=== PATIENT | male | born 1935 | race Caucasian/White ===

== ENCOUNTER 2018-10-12 17:18 | Inpatient (IN) | payer BC ==
[2018-10-12 18:10] LABS: ADD MAN DIFF? NO
[2018-10-12 18:14] LABS: BASOPHILS % 0.4 % (0.0-2.0); EOSINOPHILS # 0.4 10^3/ul (0.0-0.5); EOSINOPHILS % 3.8 % (0.0-7.0); HEMATOCRIT 32.1 % (42.0-52.0); LYMPHOCYTES # 2.2 10^3/ul (0.8-2.9); LYMPHOCYTES % 24.3 % (15.0-51.0); MEAN CORPUSCULAR HEMOGLOBIN 30.4 pg (29.0-33.0); MEAN CORPUSCULAR HGB CONC 31.2 g/dl (32.0-37.0); MEAN CORPUSCULAR VOLUME 97.6 fl (82.0-101.0); MEAN PLATELET VOLUME 10.2 fl (7.4-10.4); MONOCYTE # 0.6 10^3/ul (0.3-0.9); MONOCYTES % 6.5 % (0.0-11.0); NEUTROPHIL # 5.9 10^3/ul (1.6-7.5); NEUTROPHILS % 64.6 % (39.0-77.0); PLATELET COUNT 243 10^3/UL (140-415); RED BLOOD COUNT 3.29 10^6/ul (4.70-6.10); RED CELL DISTRIBUTION WIDTH 15.4 % (11.5-14.5)
[2018-10-12 18:14] LABS: WHITE BLOOD COUNT 9.1 10^3/ul (4.8-10.8)
[2018-10-12 18:33] LABS: INR 0.92; PROTIME 12.4 Sec (11.9-14.9)
[2018-10-12 18:41] LABS: PARTIAL THROMBOPLASTIN TIME 31.6 Sec (23.0-35.0)
[2018-10-12 18:49] LABS: MAGNESIUM 2.6 mg/dl (1.7-2.5)
[2018-10-12] MEDS: PIPER-TAZO 2.25 GM (PMX) 50 ML IVPB (18:50)
[2018-10-12 18:59] LABS: TROPONIN-I 0.097 ng/ml (0.000-0.120)
[2018-10-12 19:06] LABS: AADO2 Arterial 215.3 mmHg (7.0-24.0); Allen Test ACCEPTAB; Arterial Base Excess -1.2 mmol/L (-3.0-3); Arterial Blood Gas Oxygen Sat 99.7 mmHG (95.0-100.0); Arterial COHb 0.3 % (0.0-3.0); Arterial Fraction of Oxyhgb 99.3 % (93.0-99.0); Arterial HCO3 23.7 mmol/L (22.0-26.0); Arterial MetHb 0.1 % (0.0-1.5); Arterial pCO2 40.5 mmhg (35-45); Blood Gas IEPAP 15/5; MODE MASK - BIPAP; Site Left Radial
[2018-10-12 19:15] LABS: ALANINE AMINOTRANSFERASE 19 IU/L (13-69); ALBUMIN 4.3 g/dl (3.3-4.9); ALBUMIN/GLOBULIN RATIO 1.65; ALKALINE PHOSPHATASE 85 IU/L (42-121); ANION GAP 23 (5-13); ASPARTATE AMINO TRANSFERASE 130 IU/L (15-46); BLOOD UREA NITROGEN 35 mg/dl (7-20); CALCIUM 9.1 mg/dl (8.4-10.2); CARBON DIOXIDE 16 mmol/L (21-31); CHLORIDE 99 mmol/L (97-110); CREATININE 6.98 mg/dl (0.61-1.24); GLUCOSE 251 mg/dl (70-220); SODIUM 138 mmol/L (135-144); TOTAL PROTEIN 6.9 g/dl (6.1-8.1)
[2018-10-12] MEDS: VANCOMYCIN 1 GM (PMX) 250 ML IVPB (19:26)
[2018-10-12 19:31] LABS: POTASSIUM 6.3 mmol/L (3.5-5.1)
[2018-10-12] MEDS ORDERED: DEXTROSE 50% 50 ML SYRINGE IV (20:30)
[2018-10-12] MEDS: ALBUTEROL 0.083% (NEB) 2.5 MG/3 ML AMP HHN (20:33)
[2018-10-12] MEDS: DEXTROSE 50% 50 ML SYRINGE IV (20:40)
[2018-10-12] MEDS: FUROSEMIDE 40 MG INJ IV (20:42)
[2018-10-12] MEDS: INSULIN REGULAR, HUMAN 100 UNIT/1 ML 3ML VIAL IVP (20:48)
[2018-10-12 21:18] LABS: LACTIC ACID 1.3 mmol/L (0.5-2.0)
[2018-10-12] MEDS ORDERED: SOD CHLORIDE 0.9% 1,000 ML IV (21:56)
[2018-10-12] MEDS ORDERED: DOCUSATE SODIUM 100 MG CAP PO (22:00)
[2018-10-12] MEDS ORDERED: ONDANSETRON 4 MG INJ IV (22:00)
[2018-10-12] MEDS ORDERED: ACETAMINOPHEN 650MG/20.3ML CUP PO (22:00)
[2018-10-12] MEDS ORDERED: HYDROCODONE/APAP (5/325) TAB PO (22:00)
[2018-10-12] MEDS ORDERED: ACETAMINOPHEN 325 MG TAB PO (22:30)
[2018-10-12] MEDS ORDERED: EPOETIN 4000 UNITS/1 ML INJ (ESRD) SC (22:30)
[2018-10-12 22:40] LABS: TROPONIN-I 0.921 ng/ml (0.000-0.120)
[2018-10-12] MEDS: FAMOTIDINE 20 MG INJ IV (22:50)
[2018-10-12 22:53] LABS: POTASSIUM 5.8 mmol/L (3.5-5.1)
[2018-10-13] MEDS: ALBUTEROL/IPRATROPIUM (NEB) 3 ML AMP NEB ×6 (00:52→20:01)
[2018-10-13] MEDS: RANOLAZINE (SR) 500 MG TAB PO ×3 (01:50→21:10)
[2018-10-13] MEDS: SEVELAMER CARBONATE 0.8 GM PKT PO ×3 (07:53→17:23)
[2018-10-13] MEDS: FAMOTIDINE 20 MG INJ IV (07:53)
[2018-10-13] MEDS: LISINOPRIL 20 MG TAB PO (07:55)
[2018-10-13] MEDS: MULTIVIT/CA CARB/B CMPLX/FA TAB PO (07:55)
[2018-10-13] MEDS ORDERED: ENOXAPARIN 40 MG/0.4 ML SYG SC (09:00)
[2018-10-13] MEDS ORDERED: ENOXAPARIN 30 MG/0.3 ML SYG SC (09:00)
[2018-10-13] MEDS ORDERED: NON-FORMULARY/PATIENT OWN MED (Protein Supplement (Promod) 30 ML) PO (09:00)
[2018-10-13] MEDS: POLYETHYLENE GLYCOL 17 GM PACKET PO ×2 (10:30→11:06)
[2018-10-13 10:40] LABS: ADD MAN DIFF? NO
[2018-10-13] MEDS: DOCUSATE SODIUM 100 MG CAP PO ×3 (11:00→21:09)
[2018-10-13] MEDS: CLOPIDOGREL 75 MG TAB PO (11:06)
[2018-10-13] MEDS: ISOSORBIDE MONONITRATE(SR)30 MG TAB PO ×2 (11:06→21:11)
[2018-10-13] MEDS: ASPIRIN (EC) 81 MG TAB PO (11:06)
[2018-10-13 11:09] LABS: CREATINE KINASE 158 IU/L (23-200)
[2018-10-13 11:14] LABS: INR 0.89; PROTIME 12.1 Sec (11.9-14.9); PT RATIO 0.9
[2018-10-13 11:15] LABS: PARTIAL THROMBOPLASTIN TIME 30.1 Sec (23.0-35.0)
[2018-10-13 11:22] LABS: CK INDEX 4.4
[2018-10-13 11:25] LABS: WHITE BLOOD COUNT 10.8 10^3/ul (4.8-10.8)
[2018-10-13 11:25] LABS: BASOPHILS % 0.4 % (0.0-2.0); CK-MB 7.01 ng/ml (0.0-2.4); EOSINOPHILS # 0.1 10^3/ul (0.0-0.5); EOSINOPHILS % 1.3 % (0.0-7.0); HEMATOCRIT 32.5 % (42.0-52.0); HEMOGLOBIN 10.5 g/dl (14.0-18.0); LYMPHOCYTES # 0.8 10^3/ul (0.8-2.9); LYMPHOCYTES % 7.2 % (15.0-51.0); MEAN CORPUSCULAR HEMOGLOBIN 30.2 pg (29.0-33.0); MEAN CORPUSCULAR HGB CONC 32.3 g/dl (32.0-37.0); MEAN CORPUSCULAR VOLUME 93.4 fl (82.0-101.0); MEAN PLATELET VOLUME 9.9 fl (7.4-10.4); MONOCYTE # 0.6 10^3/ul (0.3-0.9); MONOCYTES % 5.3 % (0.0-11.0); NEUTROPHIL # 9.3 10^3/ul (1.6-7.5); NEUTROPHILS % 85.3 % (39.0-77.0); PLATELET COUNT 249 10^3/UL (140-415); RED BLOOD COUNT 3.48 10^6/ul (4.70-6.10); RED CELL DISTRIBUTION WIDTH 15.2 % (11.5-14.5)
[2018-10-13] MEDS: HEPARIN 1000 UNITS/ML 10 ML INJ IV (11:38)
[2018-10-13] MEDS: HEPARIN 25000 UNITS/250 ML 250 ML IV (11:42)
[2018-10-13 19:35] LABS: CREATINE KINASE 111 IU/L (23-200)
[2018-10-13 19:44] LABS: CK INDEX 4.3
[2018-10-13 19:46] LABS: PARTIAL THROMBOPLASTIN TIME 96.4 Sec (23.0-35.0)
[2018-10-13 19:47] LABS: CK-MB 4.78 ng/ml (0.0-2.4)
[2018-10-13] MEDS ORDERED: TERAZOSIN 5 MG CAP PO (21:00)
[2018-10-13] MEDS: ATORVASTATIN 40 MG TAB PO (21:10)
[2018-10-14] MEDS: ALBUTEROL/IPRATROPIUM (NEB) 3 ML AMP NEB ×6 (00:01→21:12)
[2018-10-14 02:20] LABS: ADD MAN DIFF? NO
[2018-10-14 02:22] LABS: WHITE BLOOD COUNT 8.1 10^3/ul (4.8-10.8)
[2018-10-14 02:22] LABS: BASOPHILS % 0.4 % (0.0-2.0); EOSINOPHILS # 0.3 10^3/ul (0.0-0.5); EOSINOPHILS % 3.9 % (0.0-7.0); HEMATOCRIT 27.4 % (42.0-52.0); HEMOGLOBIN 8.8 g/dl (14.0-18.0); LYMPHOCYTES # 0.9 10^3/ul (0.8-2.9); LYMPHOCYTES % 11.1 % (15.0-51.0); MEAN CORPUSCULAR HEMOGLOBIN 30.2 pg (29.0-33.0); MEAN CORPUSCULAR HGB CONC 32.1 g/dl (32.0-37.0); MEAN CORPUSCULAR VOLUME 94.2 fl (82.0-101.0); MEAN PLATELET VOLUME 9.2 fl (7.4-10.4); MONOCYTE # 0.8 10^3/ul (0.3-0.9); MONOCYTES % 10.2 % (0.0-11.0); PLATELET COUNT 215 10^3/UL (140-415); RED BLOOD COUNT 2.91 10^6/ul (4.70-6.10); RED CELL DISTRIBUTION WIDTH 15.3 % (11.5-14.5)
[2018-10-14 02:47] LABS: PARTIAL THROMBOPLASTIN TIME 88.7 Sec (23.0-35.0)
[2018-10-14 02:54] LABS: ALANINE AMINOTRANSFERASE 26 IU/L (13-69); ALBUMIN 3.5 g/dl (3.3-4.9); ALBUMIN/GLOBULIN RATIO 1.29; ALKALINE PHOSPHATASE 62 IU/L (42-121); ANION GAP 14 (5-13); ASPARTATE AMINO TRANSFERASE 36 IU/L (15-46); BLOOD UREA NITROGEN 33 mg/dl (7-20); CALCIUM 8.4 mg/dl (8.4-10.2); CARBON DIOXIDE 28 mmol/L (21-31); CHLORIDE 98 mmol/L (97-110); CREATININE 6.06 mg/dl (0.61-1.24); GLUCOSE 111 mg/dl (70-220); MAGNESIUM 2.3 mg/dl (1.7-2.5); PHOSPHORUS 5.7 mg/dl (2.5-4.9); POTASSIUM 4.5 mmol/L (3.5-5.1); SODIUM 140 mmol/L (135-144); TOTAL PROTEIN 6.2 g/dl (6.1-8.1)
[2018-10-14] MEDS: SEVELAMER CARBONATE 0.8 GM PKT PO ×3 (08:33→17:56)
[2018-10-14] MEDS: FAMOTIDINE 20 MG INJ IV (08:34)
[2018-10-14] MEDS: DOCUSATE SODIUM 100 MG CAP PO ×2 (08:35→21:17)
[2018-10-14] MEDS: ASPIRIN (EC) 81 MG TAB PO (08:36)
[2018-10-14] MEDS: ISOSORBIDE MONONITRATE(SR)30 MG TAB PO ×2 (08:36→21:17)
[2018-10-14] MEDS: POLYETHYLENE GLYCOL 17 GM PACKET PO (08:36)
[2018-10-14] MEDS: RANOLAZINE (SR) 500 MG TAB PO ×2 (08:37→21:16)
[2018-10-14] MEDS: CLOPIDOGREL 75 MG TAB PO (08:37)
[2018-10-14] MEDS: MULTIVIT/CA CARB/B CMPLX/FA TAB PO (08:37)
[2018-10-14 09:44] LABS: IRON 62 ug/dl (35-150)
[2018-10-14 09:53] LABS: % IRON SATURATION 28 % SAT (22-52); TOTAL IRON BINDING CAPACITY 220 ug/dl (241-421)
[2018-10-14] MEDS ORDERED: HEPARIN 1000 UNITS/ML 10 ML INJ IV (11:00)
[2018-10-14] MEDS: HEPARIN 25000 UNITS/250 ML 250 ML IV (16:34)
[2018-10-14] MEDS: EPOETIN 10000 UNITS/1 ML INJ (ESRD) SC (17:55)
[2018-10-14 18:46] LABS: PARTIAL THROMBOPLASTIN TIME 67.7 Sec (23.0-35.0)
[2018-10-14] MEDS: ATORVASTATIN 40 MG TAB PO (21:17)
[2018-10-14] MEDS: HEPARIN 5,000 UNIT/1 ML VIAL SC (21:24)
[2018-10-15] MEDS: ALBUTEROL/IPRATROPIUM (NEB) 3 ML AMP NEB ×6 (01:55→21:05)
[2018-10-15 07:04] LABS: ADD MAN DIFF? NO
[2018-10-15 07:15] LABS: BASOPHILS % 0.5 % (0.0-2.0); EOSINOPHILS # 0.2 10^3/ul (0.0-0.5); EOSINOPHILS % 2.9 % (0.0-7.0); HEMATOCRIT 31.1 % (42.0-52.0); LYMPHOCYTES % 12.8 % (15.0-51.0); MEAN CORPUSCULAR HGB CONC 32.2 g/dl (32.0-37.0); MEAN CORPUSCULAR VOLUME 93.4 fl (82.0-101.0); MEAN PLATELET VOLUME 9.6 fl (7.4-10.4); MONOCYTE # 0.9 10^3/ul (0.3-0.9); MONOCYTES % 11.3 % (0.0-11.0); NEUTROPHIL # 5.9 10^3/ul (1.6-7.5); NEUTROPHILS % 72.1 % (39.0-77.0); PLATELET COUNT 238 10^3/UL (140-415); RED BLOOD COUNT 3.33 10^6/ul (4.70-6.10); RED CELL DISTRIBUTION WIDTH 15.2 % (11.5-14.5)
[2018-10-15 07:15] LABS: WHITE BLOOD COUNT 8.1 10^3/ul (4.8-10.8)
[2018-10-15 07:36] LABS: PHOSPHORUS 4.5 mg/dl (2.5-4.9)
[2018-10-15 07:36] LABS: MAGNESIUM 2.3 mg/dl (1.7-2.5)
[2018-10-15 07:52] LABS: ALANINE AMINOTRANSFERASE 22 IU/L (13-69); ALBUMIN 3.8 g/dl (3.3-4.9); ALBUMIN/GLOBULIN RATIO 1.35; ALKALINE PHOSPHATASE 67 IU/L (42-121); ANION GAP 12 (5-13); ASPARTATE AMINO TRANSFERASE 29 IU/L (15-46); BLOOD UREA NITROGEN 25 mg/dl (7-20); CALCIUM 8.6 mg/dl (8.4-10.2); CARBON DIOXIDE 32 mmol/L (21-31); CHLORIDE 92 mmol/L (97-110); CREATININE 5.13 mg/dl (0.61-1.24); GLUCOSE 137 mg/dl (70-220); POTASSIUM 4.1 mmol/L (3.5-5.1); SODIUM 136 mmol/L (135-144); TOTAL PROTEIN 6.6 g/dl (6.1-8.1)
[2018-10-15] MEDS: POLYETHYLENE GLYCOL 17 GM PACKET PO (08:07)
[2018-10-15] MEDS: SEVELAMER CARBONATE 0.8 GM PKT PO ×3 (08:07→17:47)
[2018-10-15] MEDS: DOCUSATE SODIUM 100 MG CAP PO ×3 (08:08→21:09)
[2018-10-15] MEDS: ASPIRIN (EC) 81 MG TAB PO (08:08)
[2018-10-15] MEDS: RANOLAZINE (SR) 500 MG TAB PO ×2 (08:08→21:09)
[2018-10-15] MEDS: FAMOTIDINE 20 MG TAB PO (08:08)
[2018-10-15] MEDS: ISOSORBIDE MONONITRATE(SR)30 MG TAB PO ×2 (08:09→21:10)
[2018-10-15] MEDS: MULTIVIT/CA CARB/B CMPLX/FA TAB PO (08:09)
[2018-10-15] MEDS: CLOPIDOGREL 75 MG TAB PO (08:09)
[2018-10-15] MEDS: HEPARIN 5,000 UNIT/1 ML VIAL SC ×2 (08:15→21:49)
[2018-10-15] MEDS: BISACODYL 10 MG SUPP PR (13:15)
[2018-10-15] MEDS: ATORVASTATIN 40 MG TAB PO (21:10)
[2018-10-16] MEDS: ALBUTEROL/IPRATROPIUM (NEB) 3 ML AMP NEB ×6 (01:21→20:28)
[2018-10-16 06:37] LABS: ADD MAN DIFF? NO
[2018-10-16 06:43] LABS: BASOPHILS % 0.4 % (0.0-2.0); EOSINOPHILS # 0.2 10^3/ul (0.0-0.5); EOSINOPHILS % 1.4 % (0.0-7.0); HEMATOCRIT 29.4 % (42.0-52.0); HEMOGLOBIN 9.5 g/dl (14.0-18.0); LYMPHOCYTES # 1.1 10^3/ul (0.8-2.9); MEAN CORPUSCULAR HEMOGLOBIN 29.9 pg (29.0-33.0); MEAN CORPUSCULAR HGB CONC 32.3 g/dl (32.0-37.0); MEAN CORPUSCULAR VOLUME 92.5 fl (82.0-101.0); MEAN PLATELET VOLUME 9.6 fl (7.4-10.4); MONOCYTE # 1.1 10^3/ul (0.3-0.9); NEUTROPHIL # 8.3 10^3/ul (1.6-7.5); NEUTROPHILS % 77.3 % (39.0-77.0); PLATELET COUNT 228 10^3/UL (140-415); RED BLOOD COUNT 3.18 10^6/ul (4.70-6.10); RED CELL DISTRIBUTION WIDTH 15.3 % (11.5-14.5)
[2018-10-16 06:43] LABS: WHITE BLOOD COUNT 10.8 10^3/ul (4.8-10.8)
[2018-10-16 07:00] LABS: MAGNESIUM 2.6 mg/dl (1.7-2.5)
[2018-10-16 07:26] LABS: ANION GAP 16 (5-13); BLOOD UREA NITROGEN 47 mg/dl (7-20); CALCIUM 8.3 mg/dl (8.4-10.2); CARBON DIOXIDE 28 mmol/L (21-31); CHLORIDE 92 mmol/L (97-110); CREATININE 7.85 mg/dl (0.61-1.24); GLUCOSE 131 mg/dl (70-220); POTASSIUM 4.1 mmol/L (3.5-5.1); SODIUM 136 mmol/L (135-144)
[2018-10-16] MEDS: ASPIRIN (EC) 81 MG TAB PO (08:07)
[2018-10-16] MEDS: POLYETHYLENE GLYCOL 17 GM PACKET PO (08:07)
[2018-10-16] MEDS: CLOPIDOGREL 75 MG TAB PO (08:07)
[2018-10-16] MEDS: SEVELAMER CARBONATE 0.8 GM PKT PO ×3 (08:07→17:56)
[2018-10-16] MEDS: FAMOTIDINE 20 MG TAB PO (08:07)
[2018-10-16] MEDS: MULTIVIT/CA CARB/B CMPLX/FA TAB PO (08:07)
[2018-10-16] MEDS: RANOLAZINE (SR) 500 MG TAB PO ×2 (08:07→21:18)
[2018-10-16] MEDS: DOCUSATE SODIUM 100 MG CAP PO ×2 (08:07→21:18)
[2018-10-16] MEDS: ISOSORBIDE MONONITRATE(SR)30 MG TAB PO ×2 (08:08→21:19)
[2018-10-16] MEDS: HEPARIN 5,000 UNIT/1 ML VIAL SC ×2 (08:15→21:35)
[2018-10-16] MEDS: NITROGLYCERIN (SL) 0.4 MG TAB SL ×3 (13:34→13:48)
[2018-10-16] MEDS: morphine 2 MG INJ IV (13:40)
[2018-10-16] MEDS: ATORVASTATIN 40 MG TAB PO (21:18)
[2018-10-17] MEDS: ALBUTEROL/IPRATROPIUM (NEB) 3 ML AMP NEB ×4 (01:01→12:27)
[2018-10-17 05:55] LABS: ADD MAN DIFF? NO
[2018-10-17 06:00] LABS: WHITE BLOOD COUNT 14.2 10^3/ul (4.8-10.8)
[2018-10-17 06:00] LABS: BASOPHIL # 0.1 10^3/ul (0.0-0.1); BASOPHILS % 0.4 % (0.0-2.0); EOSINOPHILS # 0.1 10^3/ul (0.0-0.5); HEMATOCRIT 32.2 % (42.0-52.0); HEMOGLOBIN 10.1 g/dl (14.0-18.0); LYMPHOCYTES # 1.6 10^3/ul (0.8-2.9); LYMPHOCYTES % 11.5 % (15.0-51.0); MEAN CORPUSCULAR HEMOGLOBIN 29.9 pg (29.0-33.0); MEAN CORPUSCULAR HGB CONC 31.4 g/dl (32.0-37.0); MEAN CORPUSCULAR VOLUME 95.3 fl (82.0-101.0); MEAN PLATELET VOLUME 10.1 fl (7.4-10.4); MONOCYTE # 1.4 10^3/ul (0.3-0.9); NEUTROPHIL # 10.8 10^3/ul (1.6-7.5); NEUTROPHILS % 76.3 % (39.0-77.0); NUCLEATED RED BLOOD CELLS% 0.2 /100WBC (0.0-0.0); PLATELET COUNT 256 10^3/UL (140-415); RED BLOOD COUNT 3.38 10^6/ul (4.70-6.10); RED CELL DISTRIBUTION WIDTH 15.7 % (11.5-14.5)
[2018-10-17 06:37] LABS: MAGNESIUM 2.6 mg/dl (1.7-2.5)
[2018-10-17 06:37] LABS: PHOSPHORUS 4.1 mg/dl (2.5-4.9)
[2018-10-17 06:39] LABS: ANION GAP 21 (5-13); BLOOD UREA NITROGEN 40 mg/dl (7-20); CALCIUM 8.6 mg/dl (8.4-10.2); CARBON DIOXIDE 24 mmol/L (21-31); CHLORIDE 95 mmol/L (97-110); CREATININE 6.23 mg/dl (0.61-1.24); GLUCOSE 148 mg/dl (70-220); POTASSIUM 4.7 mmol/L (3.5-5.1); SODIUM 140 mmol/L (135-144)
[2018-10-17] MEDS: SEVELAMER CARBONATE 0.8 GM PKT PO ×2 (07:55→13:38)
[2018-10-17] MEDS: ASPIRIN (EC) 81 MG TAB PO (13:38)
[2018-10-17] MEDS: DOCUSATE SODIUM 100 MG CAP PO (13:38)
[2018-10-17] MEDS: RANOLAZINE (SR) 500 MG TAB PO (13:38)
[2018-10-17] MEDS: LEVOFLOXACIN 500 MG TAB PO (13:38)
[2018-10-17] MEDS: ISOSORBIDE MONONITRATE(SR)30 MG TAB PO (13:39)
[2018-10-17] MEDS: CLOPIDOGREL 75 MG TAB PO (13:39)
[2018-10-17] MEDS: MULTIVIT/CA CARB/B CMPLX/FA TAB PO (13:40)
[2018-10-17] MEDS: POLYETHYLENE GLYCOL 17 GM PACKET PO (13:40)
[2018-10-17] MEDS: FAMOTIDINE 20 MG TAB PO (13:40)
[2018-10-17] MEDS: HEPARIN 5,000 UNIT/1 ML VIAL SC (13:45)
== END 2018-10-17 16:20 | DRG 280 ==
LOC: E/R 17:18 → TEL 10-14 16:23 → ICU 19:12
PROC: 5A1D70Z Performance of Urinary Filtration, Intermittent, Less than 6 Hours Per Day (ICD-10-PCS; principal; 2018-10-13)
DX: I21.4 Non-ST elevation (NSTEMI) myocardial infarction (principal); I50.43 Acute on chronic combined systolic (congestive) and diastolic (congestive) heart failure; N18.6 End stage renal disease; J96.01 Acute respiratory failure with hypoxia; I13.2 Hypertensive heart and chronic kidney disease with heart failure and with stage 5 chronic kidney disease, or end stage renal disease; Z99.2 Dependence on renal dialysis; Z95.0 Presence of cardiac pacemaker; I25.10 Atherosclerotic heart disease of native coronary artery without angina pectoris; E78.5 Hyperlipidemia, unspecified; D64.9 Anemia, unspecified; E87.5 Hyperkalemia; I73.9 Peripheral vascular disease, unspecified; J44.9 Chronic obstructive pulmonary disease, unspecified
CPT/HCPCS: 36415; 36600; 71045; 71250; 80048; 80053; 82550; 82553; 82728; 82803; 82962; 83540; 83605; 83735; 84100; 84132; 84484; 85025; 85610; 85730; 87040; 87081; 90935; 93005; 94640; 94644; 94660; 94664; 94760; 97162; 99291-25

== ENCOUNTER 2018-10-18 20:59 | Inpatient (IN) | payer BC ==
[2018-10-18] MEDS: SOD CHLORIDE 0.9% 1,000 ML IV (22:03)
[2018-10-18 22:04] LABS: ADD MAN DIFF? NO
[2018-10-18 23:00] LABS: ABNORMAL IP MESSAGE 1; BASOPHILS % 0.2 % (0.0-2.0); EOSINOPHILS # 0.1 10^3/ul (0.0-0.5); EOSINOPHILS % 0.4 % (0.0-7.0); HEMATOCRIT 28.3 % (42.0-52.0); HEMOGLOBIN 9.3 g/dl (14.0-18.0); LYMPHOCYTES # 1.2 10^3/ul (0.8-2.9); LYMPHOCYTES % 7.4 % (15.0-51.0); MEAN CORPUSCULAR HEMOGLOBIN 30.3 pg (29.0-33.0); MEAN CORPUSCULAR HGB CONC 32.9 g/dl (32.0-37.0); MEAN CORPUSCULAR VOLUME 92.2 fl (82.0-101.0); MEAN PLATELET VOLUME 9.8 fl (7.4-10.4); MONOCYTE # 1.6 10^3/ul (0.3-0.9); MONOCYTES % 9.9 % (0.0-11.0); NEUTROPHIL # 13.3 10^3/ul (1.6-7.5); NEUTROPHILS % 81.5 % (39.0-77.0); NUCLEATED RED BLOOD CELLS% 0.1 /100WBC (0.0-0.0); PLATELET COUNT 224 10^3/UL (140-415); POSITIVE DIFF @See below; RED BLOOD COUNT 3.07 10^6/ul (4.70-6.10); RED CELL DISTRIBUTION WIDTH 15.8 % (11.5-14.5)
[2018-10-18 23:00] LABS: WHITE BLOOD COUNT 16.3 10^3/ul (4.8-10.8)
[2018-10-18 23:19] LABS: ALANINE AMINOTRANSFERASE 17 IU/L (13-69); ALBUMIN 3.4 g/dl (3.3-4.9); ALBUMIN/GLOBULIN RATIO 1.17; ALKALINE PHOSPHATASE 84 IU/L (42-121); ANION GAP 19 (5-13); ASPARTATE AMINO TRANSFERASE 23 IU/L (15-46); BLOOD UREA NITROGEN 69 mg/dl (7-20); CALCIUM 7.9 mg/dl (8.4-10.2); CARBON DIOXIDE 20 mmol/L (21-31); CHLORIDE 95 mmol/L (97-110); CREATININE 7.36 mg/dl (0.61-1.24); GLUCOSE 126 mg/dl (70-220); POTASSIUM 4.1 mmol/L (3.5-5.1); SODIUM 134 mmol/L (135-144); TOTAL PROTEIN 6.3 g/dl (6.1-8.1)
[2018-10-18 23:20] LABS: INR 1.03; PROTIME 13.6 Sec (11.9-14.9); PT RATIO 1.1
[2018-10-18 23:21] LABS: PARTIAL THROMBOPLASTIN TIME 35.8 Sec (23.0-35.0)
[2018-10-18 23:39] LABS: TROPONIN-I 0.683 ng/ml (0.000-0.120)
[2018-10-18] MEDS: VANCOMYCIN 1 GM (PMX) 250 ML IVPB (23:57)
[2018-10-18] MEDS: SODIUM CHLORIDE 0.9% 1L BAG IV* (23:57)
[2018-10-18] MEDS: CEFEPIME 2GM/50 ML (PMX) 50 ML IVPB (23:57)
[2018-10-18] MEDS: HYDROCODONE/APAP (5/325) TAB PO (23:58)
[2018-10-19] MEDS ORDERED: HYDROCODONE/APAP (5/325) TAB PO ×2
[2018-10-19] MEDS ORDERED: DOCUSATE SODIUM 100 MG CAP PO ×2
[2018-10-19] MEDS ORDERED: NACL 0.9% 3 ML SYG IV
[2018-10-19] MEDS ORDERED: NITROGLYCERIN (SL) 0.4 MG TAB SL
[2018-10-19] MEDS ORDERED: ONDANSETRON 4 MG INJ IV
[2018-10-19] MEDS ORDERED: ACETAMINOPHEN 325 MG TAB PO ×2
[2018-10-19] MEDS ORDERED: VANCOMYCIN IV PER PHARMACY XX
[2018-10-19] MEDS ORDERED: MAGNESIUM HYDROXIDE 30ML CUP PO
[2018-10-19] MEDS: SOD CHLORIDE 0.9% 1,000 ML IV (01:16)
[2018-10-19] MEDS: ALBUMIN HUMAN 25% 100 ML IV ×2 (02:24→03:27)
[2018-10-19 03:04] LABS: LACTIC ACID 3.6 mmol/L (0.5-2.0)
[2018-10-19 05:56] LABS: ADD MAN DIFF? NO
[2018-10-19 06:00] LABS: ABNORMAL IP MESSAGE 1; BASOPHILS % 0.2 % (0.0-2.0); EOSINOPHILS # 0.1 10^3/ul (0.0-0.5); EOSINOPHILS % 0.7 % (0.0-7.0); HEMATOCRIT 26.6 % (42.0-52.0); HEMOGLOBIN 8.5 g/dl (14.0-18.0); LYMPHOCYTES # 1.3 10^3/ul (0.8-2.9); LYMPHOCYTES % 8.2 % (15.0-51.0); MEAN CORPUSCULAR HEMOGLOBIN 30.1 pg (29.0-33.0); MEAN CORPUSCULAR VOLUME 94.3 fl (82.0-101.0); MEAN PLATELET VOLUME 9.8 fl (7.4-10.4); MONOCYTE # 1.6 10^3/ul (0.3-0.9); MONOCYTES % 10.4 % (0.0-11.0); NEUTROPHIL # 12.4 10^3/ul (1.6-7.5); NEUTROPHILS % 79.9 % (39.0-77.0); PLATELET COUNT 197 10^3/UL (140-415); POSITIVE DIFF @See below; RED BLOOD COUNT 2.82 10^6/ul (4.70-6.10); RED CELL DISTRIBUTION WIDTH 15.9 % (11.5-14.5)
[2018-10-19 06:00] LABS: WHITE BLOOD COUNT 15.5 10^3/ul (4.8-10.8)
[2018-10-19] MEDS: HEPARIN 5,000 UNIT/1 ML VIAL SC ×3 (06:24→20:33)
[2018-10-19 06:44] LABS: ANION GAP 22 (5-13); BLOOD UREA NITROGEN 75 mg/dl (7-20); CALCIUM 7.7 mg/dl (8.4-10.2); CARBON DIOXIDE 19 mmol/L (21-31); CHLORIDE 98 mmol/L (97-110); CREATININE 7.87 mg/dl (0.61-1.24); GLUCOSE 102 mg/dl (70-220); MAGNESIUM 2.4 mg/dl (1.7-2.5); POTASSIUM 4.1 mmol/L (3.5-5.1); SODIUM 139 mmol/L (135-144)
[2018-10-19 09:15] LABS: LACTIC ACID 1.2 mmol/L (0.5-2.0)
[2018-10-19 09:29] LABS: CREATINE KINASE 672 IU/L (23-200)
[2018-10-19] MEDS: CLOPIDOGREL 75 MG TAB PO (09:36)
[2018-10-19] MEDS: RANOLAZINE (SR) 500 MG TAB PO ×2 (09:36→20:32)
[2018-10-19] MEDS: ASPIRIN (EC) 81 MG TAB PO (09:36)
[2018-10-19] MEDS: MULTIVIT/CA CARB/B CMPLX/FA TAB PO (09:36)
[2018-10-19 09:42] LABS: CK INDEX 1.1
[2018-10-19 09:46] LABS: CK-MB 7.35 ng/ml (0.0-2.4); TROPONIN-I 0.472 ng/ml (0.000-0.120)
[2018-10-19] MEDS: SEVELAMER CARBONATE 0.8 GM PKT PO ×3 (09:49→17:40)
[2018-10-19] MEDS ORDERED: CEFEPIME 2GM/50 ML (PMX) 50 ML IVPB (12:30)
[2018-10-19] MEDS: CEFEPIME 1GM/50 ML IVPB (16:25)
[2018-10-19] MEDS: EPOETIN 10000 UNITS/1 ML INJ (ESRD) SC (17:28)
[2018-10-19 19:12] LABS: LACTIC ACID 1.9 mmol/L (0.5-2.0)
[2018-10-19] MEDS: ATORVASTATIN 40 MG TAB PO (20:32)
[2018-10-20] MEDS: LEVETIRACETAM 500 MG (PMX) 100 ML IVPB (05:56)
[2018-10-20] MEDS: HEPARIN 5,000 UNIT/1 ML VIAL SC (05:59)
[2018-10-20 06:12] LABS: ADD MAN DIFF? NO
[2018-10-20 06:16] LABS: WHITE BLOOD COUNT 15.7 10^3/ul (4.8-10.8)
[2018-10-20 06:16] LABS: BASOPHILS % 0.3 % (0.0-2.0); EOSINOPHILS # 0.1 10^3/ul (0.0-0.5); EOSINOPHILS % 0.8 % (0.0-7.0); HEMATOCRIT 25.3 % (42.0-52.0); HEMOGLOBIN 8.3 g/dl (14.0-18.0); LYMPHOCYTES # 1.1 10^3/ul (0.8-2.9); LYMPHOCYTES % 6.7 % (15.0-51.0); MEAN CORPUSCULAR HEMOGLOBIN 29.9 pg (29.0-33.0); MEAN CORPUSCULAR HGB CONC 32.8 g/dl (32.0-37.0); MEAN PLATELET VOLUME 10.3 fl (7.4-10.4); MONOCYTE # 1.5 10^3/ul (0.3-0.9); MONOCYTES % 9.2 % (0.0-11.0); NEUTROPHIL # 12.9 10^3/ul (1.6-7.5); NEUTROPHILS % 82.2 % (39.0-77.0); PLATELET COUNT 226 10^3/UL (140-415); RED BLOOD COUNT 2.78 10^6/ul (4.70-6.10); RED CELL DISTRIBUTION WIDTH 16.2 % (11.5-14.5)
[2018-10-20 06:41] LABS: IRON 16 ug/dl (35-150)
[2018-10-20 06:43] LABS: ALANINE AMINOTRANSFERASE 21 IU/L (13-69); ALBUMIN 3.9 g/dl (3.3-4.9); ALBUMIN/GLOBULIN RATIO 1.56; ALKALINE PHOSPHATASE 61 IU/L (42-121); ANION GAP 27 (5-13); ASPARTATE AMINO TRANSFERASE 34 IU/L (15-46); BLOOD UREA NITROGEN 102 mg/dl (7-20); CALCIUM 8.4 mg/dl (8.4-10.2); CARBON DIOXIDE 20 mmol/L (21-31); CHLORIDE 95 mmol/L (97-110); GLUCOSE 96 mg/dl (70-220); SODIUM 142 mmol/L (135-144); TOTAL PROTEIN 6.4 g/dl (6.1-8.1)
[2018-10-20 06:43] LABS: VANCOMYCIN,RANDOM 16.8 ug/ml
[2018-10-20 06:51] LABS: % IRON SATURATION 9 % SAT (22-52); TOTAL IRON BINDING CAPACITY 178 ug/dl (241-421)
[2018-10-20] MEDS ORDERED: SOD CHLORIDE 0.9% 1,000 ML IV (07:00)
[2018-10-20 07:42] LABS: MAGNESIUM 2.6 mg/dl (1.7-2.5)
[2018-10-20 07:42] LABS: PHOSPHORUS 5.8 mg/dl (2.5-4.9)
== END 2018-10-20 07:04 | disposition expired | DRG 871 ==
LOC: ICU 10-20 06:45 → E/R 20:59 → ICU 10-20 07:04 → 6WM 23:32
PROC: 5A12012 Performance of Cardiac Output, Single, Manual (ICD-10-PCS; principal; 2018-10-20)
DX: A41.9 Sepsis, unspecified organism (principal); I21.4 Non-ST elevation (NSTEMI) myocardial infarction; N18.6 End stage renal disease; I50.43 Acute on chronic combined systolic (congestive) and diastolic (congestive) heart failure; G92 Toxic encephalopathy; I13.2 Hypertensive heart and chronic kidney disease with heart failure and with stage 5 chronic kidney disease, or end stage renal disease; E87.2 Acidosis; Z99.2 Dependence on renal dialysis; Z66 Do not resuscitate; E87.5 Hyperkalemia; I25.10 Atherosclerotic heart disease of native coronary artery without angina pectoris; Z95.0 Presence of cardiac pacemaker; D64.9 Anemia, unspecified; J44.9 Chronic obstructive pulmonary disease, unspecified; I46.9 Cardiac arrest, cause unspecified; R56.9 Unspecified convulsions
CPT/HCPCS: 36415; 70450; 71045; 74176; 80048; 80053; 80202; 82550; 82553; 82728; 82962; 83540; 83605; 83735; 84100; 84484; 85025; 85610; 85730; 87040; 87081; 93005; 99291-25